=== PATIENT | female | born 1995 | race Caucasian/White ===

== ENCOUNTER 2017-08-21 03:56 | Emergency (ER) | payer OTHER ==
[~2017-08-21] VITALS: Ht 160 cm; Wt 81.6 kg
[2017-08-21 04:00] VITALS: BP 128/87
--- NOTE | 2017-08-21 04:37 | PHYS DOC ---
Past History Past Medical History: Anxiety Past Surgical History: , Other Alcohol Use: Occasionally Drug Use: None Adult General Chief Complaint Chief Complaint: DENTAL PROBLEM HPI HPI Patient is a 22-year-old female who presents ambulatory to the ED with the complaint of dental pain. Patient had all 4 wisdom teeth extracted 5 days ago. She states she was doing well for a few days but woke up about 3 this morning with more severe pain in all 4 locations. Patient is a smoker and she states that she did smoke a couple of cigarettes on the first and second day and has smoked more since then. She has been taking the prescribed antibiotics as directed. When she woke up this morning she took Tylenol and ibuprofen for the pain. It has not helped that much yet. She does not have a follow-up with her oral surgeon. Patient is in good general health. Review of Systems Review of Systems Constitutional: Denies fever or chills [] All other systems were reviewed and found to be within normal limits, except as documented in this note. Allergies Allergies Allergies Coded Allergies Type Severity Reaction Last Updated Verified No Known Drug Allergies 08/21/17 No Physical Exam Physical Exam Constitutional: Well developed, well nourished, no acute distress, non-toxic appearance. Patient is in no acute distress. Talking without difficulty. Handling her own secretions. HENT: Normocephalic, atraumatic, bilateral external ears normal, oropharynx moist, no oral exudates, nose normal. Sites of tooth extraction appear normal. There is no evidence of infection, no drainage, no redness, no swelling. Patient is able to open her mouth for examination. Eyes: conjunctiva normal, no discharge. [] Neck: Normal range of motion, no stridor. [] Skin: Warm, dry, no erythema, no rash. [] Extremities: No tenderness, no cyanosis, no clubbing, ROM intact, no edema. [] Neurologic: Alert and oriented X 3, normal motor function, no focal deficits noted. [] Current Patient Data Vital Signs Vital Signs Date Time Temp Pulse Resp B/P (MAP) Pulse Ox O2 Delivery O2 Flow Rate FiO2 08/21/17 04:00 97.9 87 18 98 Room Air EKG EKG [] Radiology/Procedures Radiology/Procedures [] Course & Med Decision Making Course & Med Decision Making Pertinent Labs and Imaging studies reviewed. (See chart for details) 22-year-old female presents 5 days after third molar extraction 4, with increased pain. Exam is unremarkable. She has been smoking. I encouraged her to not smoke. I advised her to follow up with her surgeon. See instructions for plan. [] Dragon Disclaimer Dragon Disclaimer This electronic medical record was generated, in whole or in part, using a voice recognition dictation system. Departure Departure: Impression: Primary Impression: Pain, dental Disposition: HOME, SELF-CARE Condition: STABLE Referrals: PCP,UNKNOWN (PCP) Additional Instructions: Continue to take antibiotics as prescribed. Use ice or heat, whichever feels better. When office hours open, call the office to see if they have any suggestions to help with your pain or if they can get you in for a recheck. MAURO PUENTES MD Aug 21, 2017 04:37
== END 2017-08-21 04:52 | disposition home or self-care (01) ==
LOC: ER 03:56
DX: K08.89 Other specified disorders of teeth and supporting structures (principal); F41.9 Anxiety disorder, unspecified; F17.200 Nicotine dependence, unspecified, uncomplicated; Z98.818 Other dental procedure status
CPT/HCPCS: 99281

== ENCOUNTER 2017-10-04 06:41 | Emergency (ER) | payer OTHER ==
[2017-10-04] MEDS ORDERED: IV NORMAL SALINE 1,000ML 1,000 ML IV SCH (07:12)
[2017-10-04] MEDS ORDERED: ONDANSETRON PF 4 MG/2 ML VIAL. IV ONE (07:30)
[2017-10-04 07:59] LABS: BASO # 0.1 x10^3/uL (0.0-0.2); BASO % 0 % (0-3); EOS # 0.1 x10^3/uL (0.0-0.7); EOS % 1 % (0-3); HEMATOCRIT 50.6 % (36.0-47.0); HEMOGLOBIN 17.6 g/dL (12.0-15.5); LYMPH # 0.8 x10^3/uL (1.0-4.8); LYMPH % 5 % (24-48); MEAN CORPUSCULAR HEMOGLOBIN 30 pg (25-35); MEAN CORPUSCULAR HGB CONC 35 g/dL (31-37); MEAN CORPUSCULAR VOLUME 87 fL (79-100); MONO # 0.6 x10^3/uL (0.0-1.1); MONO % 4 % (0-9); NEUT % 90 % (31-73); PLATELET COUNT 303 x10^3/uL (140-400); RED BLOOD COUNT 5.82 x10^6/uL (3.50-5.40); RED CELL DISTRIBUTION WIDTH 13.1 % (11.5-14.5); WHITE BLOOD COUNT 16.6 x10^3/uL (4.0-11.0)
[2017-10-04 08:02] LABS: ALBUMIN/GLOBULIN RATIO 0.9 (1.0-1.7); CALCIUM 9.1 mg/dL (8.5-10.1); CREATININE 1.1 mg/dL (0.6-1.0); GFR 62.1; TOTAL BILIRUBIN 0.8 mg/dL (0.2-1.0); TOTAL PROTEIN 8.4 g/dL (6.4-8.2)
[2017-10-04 08:20] LABS: BILIRUBIN,URINE NEG (NEG); CLARITY,URINE HAZY; COLOR,URINE AMBER; GLUCOSE,URINE NEG (NEG)
[2017-10-04 08:21] LABS: BACTERIA,URINE FEW /HPF (0-FEW); NITRITE,URINE NEG (NEG); RBC,URINE OCC /HPF (0-2); SQUAMOUS EPITHELIAL CELL,UR FEW /LPF; U PREG PATIENT NEGATIVE (NEG); UROBILINOGEN,URINE 0.2 mg/dL (0.2 mg/dL)
[2017-10-04 08:23] LABS: INFLUENZA A PATIENT NEGATIVE (NEGATIVE); INFLUENZA B PATIENT NEGATIVE (NEGATIVE)
--- NOTE | 2017-10-04 08:25 | PHYS DOC ---
Past History Past Medical History: Anxiety Past Surgical History: , Other Smoking: Cigarettes, Less than 1pk/day Alcohol Use: Occasionally Drug Use: None Adult General Chief Complaint Chief Complaint: NAUSEA/VOMITING/DIARRHEA HPI HPI 22-year-old male patient complaining of frequent episodes of vomiting and diarrhea since 2030 last night. Patient states she has had about 15 episodes of nonbloody vomiting and the same numbers of episodes of diarrhea. Patient complaining of intermittent episodes of sharp pain during episodes of vomiting and rated her pain 7/10. Patient complaining of decrease of urine output and denies fever and chills, sick contacts, nasal congestion and cough and shortness of breath. Patient complaining of generalized weakness and dizziness with subjective fever and chills. Review of Systems Review of Systems Constitutional: Reports fever and chills [] Eyes: Denies change in visual acuity, redness, or eye pain [] HENT: Denies nasal congestion or sore throat [] Respiratory: Denies cough or shortness of breath [] Cardiovascular: No additional information not addressed in HPI [] GI: Reports abdominal pain, nausea, vomiting, diarrhea [] : Denies dysuria or hematuria [] Musculoskeletal: Denies back pain or joint pain [] Integument: Denies rash or skin lesions [] Neurologic: Denies headache, focal weakness or sensory changes [] Endocrine: Denies polyuria or polydipsia [] All other systems were reviewed and found to be within normal limits, except as documented in this note. Current Medications Current Medications Current Medications Medications (Trade) Dose Ordered Sig/Candy Start Time Stop Time Status Last Admin Dose Admin Ondansetron HCl (Zofran) 4 mg 1X ONCE 10/04/17 07:30 10/04/17 07:31 DC 10/04/17 07:38 4 MG Sodium Chloride 1,000 ml @ 1,000 mls/hr Q1H 10/04/17 07:12 10/04/17 08:11 DC 10/04/17 07:40 1,000 MLS/HR Allergies Allergies Allergies Coded Allergies Type Severity Reaction Last Updated Verified Pork/Porcine Containing Products Allergy Unknown 10/04/17 Yes latex Allergy Unknown 10/04/17 Yes Physical Exam Physical Exam Constitutional: Well developed, well nourished, mild distress, non-toxic appearance. [] HENT: Normocephalic, atraumatic, bilateral external ears normal, oropharynx moist, no oral exudates, nose normal. [] Eyes: PERRLA, EOMI, conjunctiva normal, no discharge. [] Neck: Normal range of motion, no tenderness, supple, no stridor. [] Cardiovascular: Tachycardia, no murmur [] Lungs & Thorax: Bilateral breath sounds clear to auscultation [] Abdomen: Bowel sounds normal, soft, mild tenderness and guarding right lower quadrant, no masses, no pulsatile masses. [] Skin: Warm, dry, no erythema, no rash. [] Back: No tenderness, no CVA tenderness. [] Extremities: No tenderness, no cyanosis, no clubbing, ROM intact, no edema. [] Neurologic: Alert and oriented X 3, normal motor function, normal sensory function, no focal deficits noted. [] Psychologic: Affect normal, judgement normal, mood normal. [] Current Patient Data Lab Results Laboratory Tests Test 10/04/17 07:30 White Blood Count 16.6 x10^3/uL (4.0-11.0) H Red Blood Count 5.82 x10^6/uL (3.50-5.40) H Hemoglobin 17.6 g/dL (12.0-15.5) H Hematocrit 50.6 % (36.0-47.0) H Mean Corpuscular Volume 87 fL (79-100) Mean Corpuscular Hemoglobin 30 pg (25-35) Mean Corpuscular Hemoglobin Concent 35 g/dL (31-37) Red Cell Distribution Width 13.1 % (11.5-14.5) Platelet Count 303 x10^3/uL (140-400) Neutrophils (%) (Auto) 90 % (31-73) H Lymphocytes (%) (Auto) 5 % (24-48) L Monocytes (%) (Auto) 4 % (0-9) Eosinophils (%) (Auto) 1 % (0-3) Basophils (%) (Auto) 0 % (0-3) Neutrophils # (Auto) 15.0 x10^3uL (1.8-7.7) H Lymphocytes # (Auto) 0.8 x10^3/uL (1.0-4.8) L Monocytes # (Auto) 0.6 x10^3/uL (0.0-1.1) Eosinophils # (Auto) 0.1 x10^3/uL (0.0-0.7) Basophils # (Auto) 0.1 x10^3/uL (0.0-0.2) Platelet Estimate Pending Sodium Level 139 mmol/L (136-145) Potassium Level 4.0 mmol/L (3.5-5.1) Chloride Level 102 mmol/L (98-107) Carbon Dioxide Level 26 mmol/L (21-32) Anion Gap 11 (6-14) Blood Urea Nitrogen 27 mg/dL (7-20) H Creatinine 1.1 mg/dL (0.6-1.0) H Estimated GFR (Cockcroft-Gault) 62.1 BUN/Creatinine Ratio 25 (6-20) H Glucose Level 154 mg/dL (70-99) H Calcium Level 9.1 mg/dL (8.5-10.1) Total Bilirubin 0.8 mg/dL (0.2-1.0) Aspartate Amino Transferase (AST) 16 U/L (15-37) Alanine Aminotransferase (ALT) 30 U/L (14-59) Alkaline Phosphatase 146 U/L (46-116) H Total Protein 8.4 g/dL (6.4-8.2) H Albumin 4.0 g/dL (3.4-5.0) Albumin/Globulin Ratio 0.9 (1.0-1.7) L Lipase 54 U/L (73-393) L EKG EKG [] Radiology/Procedures Radiology/Procedures [CT abdomen and pelvis was unremarkable] Course & Med Decision Making Course & Med Decision Making Pertinent Labs and Imaging studies reviewed. (See chart for details) Evaluation of patient in ER showed 22-year-old male patient with frequent episodes of nausea and vomiting and diarrhea and abdominal pain. Patient had mild right lower quadrant tenderness and CT of abdomen and pelvis was unremarkable. Patient had dehydration and treated with 2 L of IV fluid and felt better. Plan discharge patient home with diagnosis of acute gastroenteritis and prescription of Zofran and instruction to take liquids diet today. [] Dragon Disclaimer Dragon Disclaimer This electronic medical record was generated, in whole or in part, using a voice recognition dictation system. Departure Departure: Impression: Primary Impression: Acute gastroenteritis Additional Impressions: Dehydration Abdominal pain Disposition: HOME, SELF-CARE (At 0945) Condition: IMPROVED Referrals: PCP,UNKNOWN (PCP) Patient Instructions: Dehydration, Adult, Viral Gastroenteritis Additional Instructions: Drink plenty of liquids No solid food today Follow-up with your primary care physician in 3-5 days Return to ER if not getting better Scripts Ondansetron (ZOFRAN ODT) 4 Mg Tab.rapdis 4 MG PO TID Y for NAUSEA, #12 Prov: YECENIA MAYS MD 10/04/17 Problem Qualifiers YECENIA MAYS MD Oct 04, 2017 08:25
[2017-10-04 08:28] LABS: % BANDS 11 % (0-9); % LYMPHS 8 % (24-48); % MONOS 2 % (0-10); % SEGS 79 % (35-66); PLATELET CLUMP PRESENT; PLT ESTIMATE ADEQUATE (ADEQUATE)
[2017-10-04] MEDS ORDERED: IV NORMAL SALINE 1,000ML 1,000 ML IV ONE (08:30)
[2017-10-04] MEDS ORDERED: IOHEXOL 300 MG/ML 75 ML VIAL. IV ONE (09:00)
--- NOTE | 2017-10-04 09:32 | RAD ---
CT of the abdomen and pelvis with contrast, 10/04/2017: History: Abdominal pain Multidetector CT imaging was performed following an IV bolus injection of iodinated contrast material. No oral contrast was administered for this exam. No hepatic abnormality is detected. The gallbladder is unremarkable. The pancreas shows no abnormality. The spleen is within normal limits in size. No renal or adrenal abnormality is detected. The abdominal aorta is unremarkable. No abdominal or pelvic adenopathy is seen. An IUD is present centrally in the uterus. The bowel loops are not distended. There is fluid in much of the colon. The appendix is visualized and shows no abnormality. No free air or free fluid is evident in the abdomen or pelvis. IMPRESSION: No acute abdominal or pelvic abnormality is detected. PQRS Compliance Statement: One or more of the following individualized dose reduction techniques were utilized for this examination: 1. Automated exposure control 2. Adjustment of the mA and/or kV according to patient size 3. Use of iterative reconstruction technique
[2017-10-04] MEDS ORDERED: ONDA4TAB10 PO (09:48)
[2017-10-04 10:25] VITALS: BP 113/61
== END 2017-10-04 10:30 | disposition home or self-care (01) ==
LOC: ER 06:41
DX: K52.9 Noninfective gastroenteritis and colitis, unspecified (principal); E86.0 Dehydration; R10.9 Unspecified abdominal pain; F41.9 Anxiety disorder, unspecified; F17.210 Nicotine dependence, cigarettes, uncomplicated; Z88.4 Allergy status to anesthetic agent; Z91.040 Latex allergy status
CPT/HCPCS: 36415; 74177; 80053; 81001; 81025; 83690; 85007; 85025; 87804; 96361; 96374; 99285; J2405; Q9967; J7030

== ENCOUNTER 2017-10-31 23:16 | Emergency (ER) | payer OTHER ==
[~2017-10-31] VITALS: Ht 160 cm; Wt 86.6 kg
[~2017-10-31 23:16] MED LIST: ONDA4TAB10 PO
[2017-11-01] MEDS ORDERED: KETOROLAC 60 MG/2 ML VIAL. IM ONE (00:45)
[2017-11-01] MEDS ORDERED: NAPR-683 PO (00:51)
--- NOTE | 2017-11-01 00:55 | PHYS DOC ---
Past History Past Medical History: Anxiety Past Surgical History: , Other Smoking: Cigarettes, Less than 1pk/day Alcohol Use: Occasionally Drug Use: Marijuana Adult General Chief Complaint Chief Complaint: VAGINAL PROBLEM HPI HPI 22-year-old female patient complaining of lower abdominal pain with radiation to her back for the last 4 days as a constant pain that getting worse with movement. Patient complaining of nausea without vomiting. Patient denies vaginal discharge, fever and chills, vomiting and diarrhea and urinary symptom. Patient states she has IUD and seen by her [employer] today and they could not see the string of IUD and ultrasound was ordered but because of the pain she decided to come to ER. Review of Systems Review of Systems Constitutional: Denies fever or chills [] Eyes: Denies change in visual acuity, redness, or eye pain [] HENT: Denies nasal congestion or sore throat [] Respiratory: Denies cough or shortness of breath [] Cardiovascular: No additional information not addressed in HPI [] GI: Reports abdominal pain, nausea, denies vomiting, bloody stools or diarrhea [ ] : Denies dysuria or hematuria [] Musculoskeletal: Denies joint pain, reports back [] Integument: Denies rash or skin lesions [] Neurologic: Denies headache, focal weakness or sensory changes [] Endocrine: Denies polyuria or polydipsia [] All other systems were reviewed and found to be within normal limits, except as documented in this note. Allergies Allergies Allergies Coded Allergies Type Severity Reaction Last Updated Verified Pork/Porcine Containing Products Allergy Unknown 10/04/17 Yes latex Allergy Unknown 10/04/17 Yes Physical Exam Physical Exam Constitutional: Well developed, well nourished, no acute distress, non-toxic appearance. [] HENT: Normocephalic, atraumatic, bilateral external ears normal, oropharynx moist, no oral exudates, nose normal. [] Eyes: PERRLA, EOMI, conjunctiva normal, no discharge. [] Neck: Normal range of motion, no tenderness, supple, no stridor. [] Cardiovascular:Heart rate regular rhythm, no murmur [] Lungs & Thorax: Bilateral breath sounds clear to auscultation [] Abdomen: Bowel sounds normal, soft, no tenderness, no masses, no pulsatile masses. [] Skin: Warm, dry, no erythema, no rash. [] Back: No tenderness, no CVA tenderness. [] Extremities: No tenderness, no cyanosis, no clubbing, ROM intact, no edema. [] Neurologic: Alert and oriented X 3, normal motor function, normal sensory function, no focal deficits noted. [] Psychologic: Affect normal, judgement normal, mood normal. [] EKG EKG [] Radiology/Procedures Radiology/Procedures [] Course & Med Decision Making Course & Med Decision Making Pertinent Labs reviewed. (See chart for details) Evaluation of patient in ER showed 23-year-old female patient with history of anxiety pending of abdominal and pelvic pain for 4 days. Patient seen by her OB/ PERSONAL COUNSELOR today and was told that the syncopal IUD was not seen and requested ultrasound patient could not state to ultrasound tomorrow and decided to come to ER. Patient had unremarkable physical exam except for anxiety. Patient felt better with Toradol. UA and urine was unremarkable. Patient instructed to follow with her [employer] doctor. discharge: I've spoken with the patient and/or caregivers. I've explained the patient's condition, diagnosis and treatment plan based on information available to me at this time. I've answered the patient's and/or caregivers questions and addressed any concerns. The patient and/or caregivers have a good understanding the patient's diagnosis, condition and treatment plan as can be expected at this point. Vital signs have been stabilized. The patient's condition is stable for discharge from the emergency department. The patient will pursue further outpatient evaluation with her primary care provider or other designated consulting physician as outlined in the discharge instructions. Patient and/or caregivers are agreeable to this plan of care and follow-up instructions have been explained in detail. The patient and/or caregivers have received these instructions in written format and expressed understanding of these discharge instructions. The patient and her caregivers are aware that if any significant change in condition or worsening of symptoms should prompt him to immediately return to this of the closest emergency department. If an emergent department is not readily available I would encourage him to call 911. [place] Disclaimer Dragon Disclaimer This electronic medical record was generated, in whole or in part, using a voice recognition dictation system. Departure Departure: Impression: Primary Impression: Pelvic pain Additional Impression: Anxiety Disposition: HOME, SELF-CARE (at 0050) Condition: IMPROVED Referrals: NON,STAFF (PCP) Patient Instructions: Pelvic Pain, Female Additional Instructions: Drink plenty of liquids Follow-up with your [employer] as instructed Return to ER if not getting better Scripts Naproxen (NAPROSYN) 500 Mg Tablet 1 TAB PO BID, #20 TAB 1 Refill Prov: YECENIA MAYS MD 11/01/17 Problem Qualifiers YECENIA MAYS MD Nov 01, 2017 00:55
[2017-11-01 01:00] VITALS: BP 141/81
[2017-11-01 02:37] LABS: BILIRUBIN,URINE NEG (NEG); CLARITY,URINE CLEAR; COLOR,URINE YELLOW; GLUCOSE,URINE NEG (NEG); NITRITE,URINE NEG (NEG); UROBILINOGEN,URINE 0.2 mg/dL (0.2 mg/dL)
== END 2017-11-01 01:00 | disposition home or self-care (01) ==
LOC: ER 23:16
DX: R10.2 Pelvic and perineal pain (principal); F41.9 Anxiety disorder, unspecified; F17.210 Nicotine dependence, cigarettes, uncomplicated; F12.10 Cannabis abuse, uncomplicated; Z98.890 Other specified postprocedural states; Z91.040 Latex allergy status; Z91.048 Other nonmedicinal substance allergy status
CPT/HCPCS: 81003; 81025; 96372; 99283; J1885

== ENCOUNTER → 2017-11-13 | Outpatient (CLI) | payer OTHER ==
[2017-11-01 01:00] VITALS: BP 141/81
[~2017-11-13] MED LIST changes: +NAPR-683 PO
--- NOTE | 2017-11-13 14:29 | RAD ---
DATE: 11/13/2017. EXAM: ULTRASOUND BREAST LEFT, MAMMO KEILA DIAG LT. HISTORY: Palpable focus in the left breast. History of left breast abscess superior to this site. COMPARISON: None available. This is interpreted as a baseline study. This study was interpreted with the benefit of Computerized Aided Detection (CAD). FINDINGS: On today's sonography at the site of concern at the 9:00 position 2 cm from the nipple, there is an elongated, isoechoic to slightly hyperechoic region with irregular borders that measures approximately 1.1 x 0.6 x 1.2 cm. It appears contiguous with a scarlike region that extends more superficially. No clearly liquid component or internal flow is identified. The breast parenchyma is heterogeneously dense, which could reduce sensitivity of mammography. Breast parenchyma level C.. Mammographic, the palpable region of concern is marked inferomedially at approximately the 7:00 position. Underlying this, there is an elongated bilobed density that appears to represent a combination of mass and adjacent parenchyma. Altogether it measures approximately 1.1 cm short axis and 4.5 cm longitudinally. There are no associated calcifications. There is some architectural distortion. Another density very medially just inferior to the nipple appears to be a parenchymal island on tomography. BI-RADS CATEGORY: 4 SUSPICIOUS ABNORMALITY-BIOPSY SHOULD BE CONSIDERED. RECOMMENDED FOLLOW-UP: BIO BIOPSY RECOMMENDED. A relatively hyperechoic mass with architectural distortion may represent fat necrosis in the setting of prior breast abscess, but is indeterminate. Recommend ultrasound-guided biopsy of the hyperechoic masslike region of concern at the 9:00 position with clip placement. Postclip mammography can assess its relationship to the more elongated mammographic density and guide further management. PQRS compliance statement: Patient information was entered into a reminder system with a target due date (now) for the next mammogram. Mammography is a sensitive method for finding small breast cancers, but it does not detect them all and is not a substitute for careful clinical examination. A negative mammogram does not negate a clinically suspicious finding and should not result in delay in biopsying a clinically suspicious abnormality. "Our facility is accredited by the [employer] Mammography Program."
== END | disposition home or self-care (01) ==
LOC: US 13:17
PROVIDERS: ATTEND Nurse Practitioner Family
DX: N63.20 Unspecified lump in the left breast, unspecified quadrant (principal)
CPT/HCPCS: 76641; 77065; G0279; 77061

== ENCOUNTER 2018-01-04 20:03 | Emergency (ER) | payer OTHER ==
[~2018-01-04] VITALS: Ht 160 cm; Wt 86.4 kg
[2018-01-04 21:20] LABS: BILIRUBIN,URINE NEG (NEG); CLARITY,URINE CLOUDY; COLOR,URINE AMBER; GLUCOSE,URINE NEG (NEG); NITRITE,URINE POS (NEG); UROBILINOGEN,URINE 1 mg/dL (0.2 mg/dL)
[2018-01-04 21:29] LABS: BACTERIA,URINE FEW /HPF (0-FEW); RBC,URINE TNTC /HPF (0-2)
[2018-01-04 21:47] VITALS: BP 134/85
[2018-01-04] MEDS ORDERED: CEPH-264 PO (21:49)
[2018-01-04] MEDS ORDERED: PHEN100T82 PO (21:49)
--- NOTE | 2018-01-04 21:49 | PHYS DOC ---
Past History Past Medical History: Anxiety Past Surgical History: , Other Smoking: Cigarettes, Less than 1pk/day Alcohol Use: Occasionally Drug Use: Marijuana Adult General Chief Complaint Chief Complaint: BLOOD IN URINE HPI HPI 22-year-old female complaining of dysuria or frequency urgency and blood in her urine. Patient states she is not having vaginal bleeding or discharge. She has no back pain. No nausea vomiting fevers chills or sweats. Patient has no colicky pain in the discomfort is confined to her suprapubic distribution Review of Systems Review of Systems Constitutional: Denies fever or chills [] Eyes: Denies change in visual acuity, redness, or eye pain [] HENT: Denies nasal congestion or sore throat [] Respiratory: Denies cough or shortness of breath [] Cardiovascular: No additional information not addressed in HPI [] GI: Denies abdominal pain, nausea, vomiting, bloody stools or diarrhea [] : Denies dysuria or hematuria [] Musculoskeletal: Denies back pain or joint pain [] Integument: Denies rash or skin lesions [] Neurologic: Denies headache, focal weakness or sensory changes [] Endocrine: Denies polyuria or polydipsia [] All other systems were reviewed and found to be within normal limits, except as documented in this note. Current Medications Current Medications Current Medications Medications (Trade) Dose Ordered Sig/Candy Start Time Stop Time Status Last Admin Dose Admin Cephalexin HCl (Keflex) 500 mg 1X ONCE 01/04/18 21:45 01/04/18 21:46 UNV Phenazopyridine HCl (Pyridium) 200 mg 1X ONCE 01/04/18 21:45 01/04/18 21:46 UNV Allergies Allergies Allergies Coded Allergies Type Severity Reaction Last Updated Verified Pork/Porcine Containing Products Allergy Unknown 10/04/17 Yes latex Allergy Unknown 10/04/17 Yes Physical Exam Physical Exam Well-appearing female no acute distress completely benign exam except mild suprapubic tenderness no guarding or rebound no mass or megaly normal bowel sounds nondistended abdomen no CVA tenderness Constitutional: Well developed, well nourished, no acute distress, non-toxic appearance. [] HENT: Normocephalic, atraumatic, bilateral external ears normal, oropharynx moist, no oral exudates, nose normal. [] Eyes: PERRLA, EOMI, conjunctiva normal, no discharge. [] Neck: Normal range of motion, no tenderness, supple, no stridor. [] Cardiovascular:Heart rate regular rhythm, no murmur [] Lungs & Thorax: Bilateral breath sounds clear to auscultation [] Abdomen: Bowel sounds normal, soft, no tenderness, no masses, no pulsatile masses. [] Skin: Warm, dry, no erythema, no rash. [] Back: No tenderness, no CVA tenderness. [] Extremities: No tenderness, no cyanosis, no clubbing, ROM intact, no edema. [] Neurologic: Alert and oriented X 3, normal motor function, normal sensory function, no focal deficits noted. [] Psychologic: Affect normal, judgement normal, mood normal. [] Current Patient Data Vital Signs Vital Signs Date Time Temp Pulse Resp B/P (MAP) Pulse Ox O2 Delivery O2 Flow Rate FiO2 01/04/18 20:30 97.8 120 18 100 Room Air Lab Results Laboratory Tests Test 01/04/18 19:41 01/04/18 20:20 POC Urine HCG, Qualitative hcg negative (Negative) Urine Collection Type Unknown Urine Color Dorcas Urine Clarity Cloudy Urine pH 6.0 Urine Specific Mclean 1.025 Urine Protein >100 mg/dl (NEG-TRACE) Urine Glucose (UA) Neg mg/dL (NEG) Urine Ketones (Stick) 15 mg/dL (NEG) Urine Blood Large (NEG) Urine Nitrite Pos (NEG) Urine Bilirubin Neg (NEG) Urine Urobilinogen Dipstick 1 mg/dL (0.2 mg/dL) Urine Leukocyte Esterase Large (NEG) Urine RBC Tntc /HPF (0-2) Urine WBC 1-4 /HPF (0-4) Urine Squamous Epithelial Cells None /LPF Urine Bacteria Few /HPF (0-FEW) EKG EKG [] Radiology/Procedures Radiology/Procedures [] Course & Med Decision Making Course & Med Decision Making Pertinent Labs and Imaging studies reviewed. (See chart for details) Signs and symptoms consistent with UTI confirmed by urinalysis. Keflex and Pyridium given in ED and prescription dispensed dispensed. Patient aware to follow-up with primary care physician and return immediately for new severe worsening symptoms [] Dragon Disclaimer Dragon Disclaimer This electronic medical record was generated, in whole or in part, using a voice recognition dictation system. Departure Departure: Impression: Primary Impression: UTI (urinary tract infection) Additional Impression: Microscopic hematuria Disposition: 01 HOME, SELF-CARE Condition: IMPROVED Referrals: PCP,UNKNOWN (PCP) Patient Instructions: Urinary Tract Infection Additional Instructions: It appears the have urinary tract infection. Finish Keflex as prescribed. Take Pyridium as prescribed for burning and discomfort with urination. Rest and drink plenty of fluids. Follow-up with your doctor for reevaluation and recheck of your infection and your microscopic hematuria. Return immediately for new severe worsening symptoms Scripts Phenazopyridine Hcl (PYRIDIUM) 100 Mg Tablet 100 MG PO TID, #6 TAB Prov: JENNY CORTES MD 01/04/18 Cephalexin (KEFLEX) 500 Mg Capsule 500 MG PO QID for 10 Days, #40 CAP Prov: JENNY CORTES MD 01/04/18 Problem Qualifiers JENNY CORTES MD Jan 04, 2018 21:49
[2018-01-04] MEDS ORDERED: PHENAZOPYRIDINE 200 MG TABLET. PO ONE (22:00)
[2018-01-04] MEDS ORDERED: CEPHALEXIN 250 MG CAPSULE PO ONE (22:00)
== END 2018-01-04 22:03 | disposition home or self-care (01) ==
LOC: ER 20:03
DX: N39.0 Urinary tract infection, site not specified (principal); R31.29 Other microscopic hematuria; F41.9 Anxiety disorder, unspecified; F17.210 Nicotine dependence, cigarettes, uncomplicated; F12.10 Cannabis abuse, uncomplicated; Z91.040 Latex allergy status; Z91.048 Other nonmedicinal substance allergy status
CPT/HCPCS: 81001; 81025; 99283

== ENCOUNTER 2018-03-19 00:18 | Emergency (ER) | payer OTHER ==
[~2018-03-19] VITALS: Ht 160 cm; Wt 88.1 kg
[~2018-03-19 00:18] MED LIST changes: +CEPH-264 PO; +PHEN100T82 PO
--- NOTE | 2018-03-19 00:22 | ED.ADGEN ---
Past History Past Medical History: Anxiety Past Surgical History: , Other Smoking: Cigarettes, Less than 1pk/day Alcohol Use: Occasionally Drug Use: Marijuana Adult General HPI HPI Patient is a 22 year old female who presents with left breast pain. Patient states she was evaluated a month ago and noted to have a mass in the left breast by her septic tank service technician. She was referred for mammogram. She was then recommended to have biopsy done but did not proceed to this procedure for fear of receiving a poor diagnosis. She presents to the ER [facility] complaining of acute pain in the area where the mass was noted. She isn't having pain over the last 2-3 days. The pain has been causing her a lot of anxiety and some intermittent nausea. She has had no vomiting. No fever. No nipple discharge. Review of Systems Review of Systems Constitutional: Denies fever or chills HENT: Denies nasal congestion Respiratory: Denies cough Cardiovascular: No additional information GI: Denies abdominal pain Musculoskeletal: Denies back pain Integument: Denies rash or skin lesions Neurologic: Denies headache All other systems were reviewed and found to be within normal limits, except as documented in this note. Current Medications Current Medications Current Medications Medications (Trade) Dose Ordered Sig/Candy Start Time Stop Time Status Last Admin Dose Admin Acetaminophen/ Hydrocodone Bitart (Lortab 7.5/325) 1 tab 1X ONCE 03/19/18 01:00 03/19/18 01:01 UNV Ibuprofen (Motrin) 800 mg 1X ONCE 03/19/18 01:00 03/19/18 01:01 UNV Ondansetron HCl (Zofran Odt) 4 mg 1X ONCE 03/19/18 01:00 03/19/18 01:01 UNV Allergies Allergies Allergies Coded Allergies Type Severity Reaction Last Updated Verified Pork/Porcine Containing Products Allergy Unknown 10/04/17 Yes latex Allergy Unknown 10/04/17 Yes Physical Exam Physical Exam Constitutional: Well developed, well nourished HENT: Normocephalic, atraumatic, bilateral external ears normal Neck: Normal range of motion Abdomen: Bowel sounds normal Skin: Warm, dry, no erythema, there is an area over the chin of erythema and some blistering. There is an additional area that appears similar over the right ear and over the back of the left shoulder. The patient states these developed after she had a sunburn several days earlier. She had some blisters that she picked and the wounds failed to heal. Rather have gotten worse. There is some local erythema and warmth to touch in the areas. Neurologic: Alert and oriented X 3 Psychologic: Affect normal Examination of the left breast reveals no dimpling. There is no nipple discharge. The patient does have a piercing through the nipple. Over the external aspect of the left breast at the 9 o'clock position in relation to the nipple there is a large palpable mass that is painful. The mass is not seem fluctuant. It is movable in the breast tissue. I did not appreciate additional masses on the rest of the breast exam. Current Patient Data Vital Signs Vital Signs Date Time Temp Pulse Resp B/P (MAP) Pulse Ox O2 Delivery O2 Flow Rate FiO2 03/19/18 00:23 98.6 102 18 97 Room Air EKG EKG [] Radiology/Procedures Radiology/Procedures [] Course & Med Decision Making Course & Med Decision Making Pertinent Labs and Imaging studies reviewed. (See chart for details) Patient is seen and examined immediately on arrival. She presents with concerns of pain in the area of a breast mass which she was first diagnosed with 8 months earlier. Her examination is documented above. The exam was accompanied by a female registered nurse. Bedside ultrasound was completed to evaluate and the were multiple cystic structures present in the area of concern in the left breast. Formal ultrasound was not ordered this evening because there is no indication for an emergency ultrasound in this setting and in the absence of concern for acute abscess. There are no skin changes or local fever or erythema concerning for cellulitis or abscess. The area was mildly tender during the exam. The patient is again strongly recommended to follow-up with her primary care physician which she states she will do tomorrow. She does need to proceed to formal ultrasound and biopsy irregardless of cystic structures that were visualized this evening. This is explained to the patient and she does seem to understand. She states she'll contact her primary care doctor tomorrow. Regarding the skin lesions, the patient is placed on clindamycin for both staph and strep coverage empirically. Opiate precautions were discussed. Patient is agreeable to the plan of care. She is accompanied by her sister this evening who will be driving her home. Final Impression Final Impression Mass in Left Breast Fibrocystic breast tissue Draglew Disclaimer Dragon Disclaimer This electronic medical record was generated, in whole or in part, using a voice recognition dictation system. MIGUELITO GILLIS DO Mar 19, 2018 00:22
[2018-03-19 00:23] VITALS: BP 122/88
[2018-03-19] MEDS ORDERED: ONDA8TAB12 PO (00:56)
[2018-03-19] MEDS ORDERED: HYDR-971 PO (00:56)
[2018-03-19] MEDS ORDERED: IBUP800T19 PO (00:56)
[2018-03-19] MEDS ORDERED: CLIN300C8 PO (01:03)
[2018-03-19] MEDS ORDERED: ONDANSETRON ODT 4 MG TAB.RAPDIS PO ONE (01:15)
[2018-03-19] MEDS ORDERED: HYDROcodone/APAP 7.5/325MG 1 TAB TABLET PO ONE (01:15)
[2018-03-19] MEDS ORDERED: IBUPROFEN 800 MG TABLET. PO ONE (01:15)
== END 2018-03-19 01:25 | disposition home or self-care (01) ==
LOC: ER 00:18
DX: N63.0 Unspecified lump in unspecified breast (principal); N60.12 Diffuse cystic mastopathy of left breast; F41.9 Anxiety disorder, unspecified; F17.210 Nicotine dependence, cigarettes, uncomplicated; Z91.040 Latex allergy status; Z91.048 Other nonmedicinal substance allergy status
CPT/HCPCS: 99284; Q0162

== ENCOUNTER 2018-09-14 22:28 | Emergency (ER) | payer OTHER ==
[~2018-09-14] VITALS: Ht 160 cm; Wt 78.0 kg
[~2018-09-14 22:28] MED LIST changes: +CLIN300C8 PO; +HYDR-3165 PO; +IBUP800T19 PO; +ONDA8TAB12 PO
--- NOTE | 2018-09-14 22:32 | ED.ADGEN ---
Past History Past Medical History: No Pertinent History Past Surgical History: No Surgical History Smoking: Cigarettes, Less than 1pk/day Alcohol Use: Occasionally Drug Use: None Adult General Chief Complaint Chief Complaint "..I fell...yesterday.... Ice Skating... but today... I got a massage.. and the masseuse punched my hand... and now my wrist and hand hurt..Rt.. " HPI HPI Patient is a 23 year old female who presents with above hx and complaints injury to Rt. hand in fall yesterday. However while getting a massage today, had re-injury by a massage technique. Distal neurovascular intact. Patient localizes pain to the fifth finger and middle phalange area of right hand. Patient is right-hand dominant. Capillary refill is equal to other fingers. No other injuries reported. Patient reports increased pain with movement of fifth finger. No upper arm tenderness. Wrist squeeze is nontender. Review of Systems Review of Systems Constitutional: Denies fever or chills [] Eyes: Denies change in visual acuity, redness, or eye pain [] HENT: Denies nasal congestion or sore throat [] Respiratory: Denies cough or shortness of breath [] Cardiovascular: No additional information not addressed in HPI [] GI: Denies abdominal pain, nausea, vomiting, bloody stools or diarrhea [] : Denies dysuria or hematuria [] Musculoskeletal: Denies back pain or joint pain []complains of right hand injury Integument: Denies rash or skin lesions [] Neurologic: Denies headache, focal weakness or sensory changes [] Endocrine: Denies polyuria or polydipsia [] All other systems were reviewed and found to be within normal limits, except as documented in this note. Family History Family History Noncontributory Current Medications Current Medications Current Medications Medications (Trade) Dose Ordered Sig/Candy Start Time Stop Time Status Last Admin Dose Admin Hydrocodone Bitartrate/ Ibuprofen (Vicoprofen 7.5-200) 1 tab STK-MED ONCE 09/15/18 00:02 09/15/18 00:11 DC Allergies Allergies Allergies Coded Allergies Type Severity Reaction Last Updated Verified Pork/Porcine Containing Products Allergy Unknown 10/04/17 Yes latex Allergy Unknown 10/04/17 Yes Physical Exam Physical Exam Constitutional: Well developed, well nourished, moderately acute distress, non- toxic appearance. [] HENT: Normocephalic, atraumatic, bilateral external ears normal, oropharynx moist, no oral exudates, nose normal. [] Eyes: PERRLA, EOMI, conjunctiva normal, no discharge. [] Neck: Normal range of motion, no tenderness, supple, no stridor. [] Cardiovascular:Heart rate regular rhythm, no murmur [] Lungs & Thorax: Bilateral breath sounds equal apexes few scattered wheezes auscultation [] Abdomen: Bowel sounds normal, soft, no tenderness, no masses, no pulsatile masses. [] Skin: Warm, dry, no erythema, no rash. [] Back: No tenderness, no CVA tenderness. [] Extremities: No tenderness, no cyanosis, no clubbing, ROM intact, no edema. [] Except right hand complaints as per history of present illness Neurologic: Alert and oriented X 3, normal motor function, normal sensory function, no focal deficits noted. [] Psychologic: Affect anxious, judgement normal, mood normal. [] Current Patient Data Vital Signs Vital Signs Date Time Temp Pulse Resp B/P (MAP) Pulse Ox O2 Delivery O2 Flow Rate FiO2 09/14/18 22:38 98.5 114 16 98 Room Air EKG EKG [] Radiology/Procedures Radiology/Procedures My interpretation of x-ray of right hand shows no obvious fracture or dislocation. See formal report when available.[] Course & Med Decision Making Course & Med Decision Making Pertinent Labs and Imaging studies reviewed. (See chart for details) Rest. Elevation. Ice packs as needed. Use adan splint to fingers 5 and 4. Take Tylenol and ibuprofen for discomfort. For marked discomfort may take Vicoprofen. Follow-up primary care. Consider re-x-ray no improvement in 2 weeks. [] Final Impression Final Impression 1. Rt. Hand and Wrist Sprain[] Dragon Disclaimer Dragon Disclaimer This electronic medical record was generated, in whole or in part, using a voice recognition dictation system. JORDY MCQUEEN MD Sep 14, 2018 22:32
[2018-09-14 22:38] VITALS: BP 111/79
[2018-09-14] MEDS ORDERED: HYDR-1179 PO (23:45)
--- NOTE | 2018-09-14 23:58 | RAD ---
Right HAND, VIEWS 3 Indication: Fell yesterday. Pain in right 3rd,4th and 5th digits. Hx of dislocation Findings: There is no acute fracture or dislocation. Bony articulations are normal. There is no bony erosion. Mineralization is normal. There is no radiographically apparent soft tissue swelling or radiopaque foreign body. IMPRESSION: No acute fracture. Electronically signed by: Cesar Iqbal MD (09/14/2018 11:55 PM) [facility]
[2018-09-15] MEDS ORDERED: HYDROcodon/IBUPROFEN 7.5/200MG 1 TAB TABLET PO ONE
[2018-09-15] MEDS ORDERED: HYDROcodon/IBUPROFEN 7.5/200MG 1 TAB TABLET ONE (00:02)
== END 2018-09-15 00:10 | disposition home or self-care (01) ==
LOC: ER 22:28
DX: S63.501A Unspecified sprain of right wrist, initial encounter (principal); F17.210 Nicotine dependence, cigarettes, uncomplicated; Z91.040 Latex allergy status; Z88.8 Allergy status to other drugs, medicaments and biological substances; W18.30XA Fall on same level, unspecified, initial encounter; Y93.21 Activity, ice skating; Y92.89 Other specified places as the place of occurrence of the external cause; Y99.8 Other external cause status
CPT/HCPCS: 73130; 99283; 99284

== ENCOUNTER 2018-11-27 21:06 | Emergency (ER) | payer OTHER ==
[~2018-11-27] VITALS: Ht 160 cm; Wt 70.8 kg
[~2018-11-27 21:06] MED LIST changes: +HYDR-1179 PO
[2018-11-27] MEDS ORDERED: IV NORMAL SALINE 1,000ML 1,000 ML IV ONE ×2 (21:15→22:15)
[2018-11-27] MEDS ORDERED: KETOROLAC 30 MG/ML VIAL. IV ONE (21:30)
[2018-11-27] MEDS ORDERED: FAMOTIDINE 20 MG/2 ML VIAL IVP ONE (21:30)
[2018-11-27] MEDS ORDERED: ONDANSETRON PF 4 MG/2 ML VIAL. IV ONE ×2 (21:30→22:15)
--- NOTE | 2018-11-27 21:40 | PHYS DOC ---
Past History Past Medical History: No Pertinent History Past Surgical History: , Other Smoking: Cigarettes, Less than 1pk/day Alcohol Use: Occasionally Drug Use: None Adult General Chief Complaint Chief Complaint: ABDOMINAL PAIN HPI HPI Patient is a 23 year old female who presents with one week of upper respiratory symptoms, nausea, and vomiting. Patient says she has not been able to keep food or drink down. She has tried taking antacid and ibuprofen. She denies chest pain , shortness of breath, diarrhea, dysuria, or hematuria. No recent travel or exposure to known sick contacts. Review of Systems Review of Systems Constitutional: Denies fever or chills [] Eyes: Denies change in visual acuity, redness, or eye pain [] HENT: Denies nasal congestion or sore throat [] Respiratory: Reports cough; denies shortness of breath [] Cardiovascular: Denies chest pain GI: Reports nausea and vomiting; denies abdominal pain or diarrhea [] : Denies dysuria or hematuria [] Musculoskeletal: Denies back pain or joint pain [] Integument: Denies rash or skin lesions [] Neurologic: Denies headache, focal weakness or sensory changes [] Complete systems were reviewed and found to be within normal limits, except as documented in this note. Current Medications Current Medications Current Medications Medications (Trade) Dose Ordered Sig/Candy Start Time Stop Time Status Last Admin Dose Admin Famotidine (Pepcid Vial) 20 mg 1X ONCE 11/27/18 21:30 11/27/18 21:31 DC Ketorolac Tromethamine (Toradol 30mg Vial) 15 mg 1X ONCE 11/27/18 21:30 11/27/18 21:31 DC Ondansetron HCl (Zofran) 4 mg 1X ONCE 11/27/18 21:30 11/27/18 21:31 DC Sodium Chloride 1,000 ml @ 1,000 mls/hr 1X ONCE 11/27/18 21:15 11/27/18 22:14 Allergies Allergies Allergies Coded Allergies Type Severity Reaction Last Updated Verified Pork/Porcine Containing Products Allergy Unknown 10/04/17 Yes latex Allergy Unknown 10/04/17 Yes Physical Exam Physical Exam Constitutional: Well developed, well nourished, no acute distress, non-toxic appearance. [] HENT: Normocephalic, atraumatic, oropharynx moist Eyes: Conjunctiva normal, no discharge. [] Neck: Normal range of motion, no tenderness, supple, no stridor. [] Cardiovascular: Heart rate regular rhythm, no murmur [] Lungs & Thorax: Bilateral breath sounds clear to auscultation [] Abdomen: Soft, mild epigastric tenderness, no rebound/guarding/distention Skin: Warm, dry, no erythema, no rash. [] Back: No tenderness, no CVA tenderness. [] Extremities: No tenderness, ROM intact, no edema. [] Neurologic: Alert and oriented X 3, normal motor function, normal sensory function, no focal deficits noted. [] Psychologic: Affect normal, judgement normal, mood normal. [] Current Patient Data Vital Signs Vital Signs Date Time Temp Pulse Resp B/P (MAP) Pulse Ox O2 Delivery O2 Flow Rate FiO2 11/27/18 21:10 98.1 91 18 95 Room Air EKG EKG [] Radiology/Procedures Radiology/Procedures [] Course & Med Decision Making Course & Med Decision Making Pertinent Lab studies reviewed. (See chart for details) Patient presents with report of cough and nausea and vomiting. Some epigastric tenderness on palpation. Abdomen non-peritoneal. IVF hydration given. Labs obtained and posted to chart. Hemoglobin concentrated as in dehydration. Second IVF bolus provided. UA with signs of infection. Empiric antibiotics given. Potassium replaced. Pain/nausea addressed. Patient with interval improvement of symptoms. Patient stable for discharge home with outpatient follow-up with PCP. Discussed findings and plan with patient and family, who acknowledge understanding and agreement. Dragon Disclaimer Dragon Disclaimer This electronic medical record was generated, in whole or in part, using a voice recognition dictation system. Departure Departure: Impression: Primary Impression: Abdominal pain Additional Impression: Nausea & vomiting Disposition: 01 HOME, SELF-CARE Condition: STABLE Referrals: PCP,HUMA (PCP) JÚNIOR PADILLA MD Patient Instructions: Abdominal Pain (Nonspecific), Hypokalemia-Brief, Nausea and Vomiting, Jkfa-[id number]-Brac, Potassium Content of Foods, Urinary Tract Infection , Kxpu-br-Tnpi Scripts Cephalexin (KEFLEX) 500 Mg Capsule 1 CAP PO TID for UTI for 7 Days, #21 CAP Prov: JENNY NEUMANN DO 11/28/18 Hyoscyamine Sulfate (LEVSIN-SL) 0.125 Mg Tab.subl 1-2 TAB SL PRN Q4HRS for Abdominal pain, #20 TAB Prov: JENNY NEUMANN DO 11/28/18 Promethazine HCl (Phenergan) 25 Mg Supp.rect 25 MG RC TID PRN PRN for NAUSEA, #14 SUPP.RECT Prov: JENNY NEUMANN DO 11/28/18 Ondansetron (ONDANSETRON ODT) 4 Mg Tab.rapdis 1 TAB PO PRN Q6-8HRS for NAUSEA, #16 TAB Prov: JENNY NEUMANN DO 11/28/18 Famotidine (PEPCID) 20 Mg Tablet 1 TAB PO BID for gastritis, #20 TAB Prov: JENNY NEUMANN DO 11/28/18 Problem Qualifiers Primary Impression: Abdominal pain Abdominal location: epigastric Qualified Codes: R10.13 - Epigastric pain Additional Impression: Nausea & vomiting Vomiting type: unspecified Vomiting Intractability: intractable Qualified Codes: R11.2 - Nausea with vomiting, unspecified JENNY NEUMANN DO Nov 27, 2018 21:40
[2018-11-27 21:58] LABS: BASO # 0.1 x10^3/uL (0.0-0.2); BASO % 1 % (0-3); EOS # 0.1 x10^3/uL (0.0-0.7); EOS % 1 % (0-3); HEMATOCRIT 47.1 % (36.0-47.0); HEMOGLOBIN 16.2 g/dL (12.0-15.5); LYMPH # 4.3 x10^3/uL (1.0-4.8); LYMPH % 38 % (24-48); MEAN CORPUSCULAR HEMOGLOBIN 30 pg (25-35); MEAN CORPUSCULAR HGB CONC 34 g/dL (31-37); MEAN CORPUSCULAR VOLUME 86 fL (79-100); MONO # 0.6 x10^3/uL (0.0-1.1); MONO % 5 % (0-9); NEUT # 6.2 x10^3uL (1.8-7.7); NEUT % 55 % (31-73); PLATELET COUNT 321 x10^3/uL (140-400); RED BLOOD COUNT 5.48 x10^6/uL (3.50-5.40); RED CELL DISTRIBUTION WIDTH 12.7 % (11.5-14.5); WHITE BLOOD COUNT 11.3 x10^3/uL (4.0-11.0)
[2018-11-27 22:02] LABS: BARBITURATES NEG (NEG); BENZODIAZEPINES NEG (NEG); CANNABINOIDS POS (NEG); COCAINE NEG (NEG); METHADONE NEG (NEG); OPIATES NEG (NEG); PHENCYCLIDINE NEG (NEG)
[2018-11-27 22:04] LABS: BILIRUBIN,URINE SMALL (NEG); CLARITY,URINE HAZY; COLOR,URINE AMBER; GLUCOSE,URINE NEG (NEG); NITRITE,URINE POS (NEG); RBC,URINE OCC /HPF (0-2); UROBILINOGEN,URINE 0.2 mg/dL (0.2 mg/dL); WBC,URINE >40 /HPF (0-4)
[2018-11-27 22:05] LABS: BACTERIA,URINE MANY /HPF (0-FEW); SQUAMOUS EPITHELIAL CELL,UR FEW /LPF
[2018-11-27 22:06] LABS: AMPHETAMINE/METHAMPHETAMINE NEG (NEG)
[2018-11-27 22:07] LABS: ALBUMIN 4.1 g/dL (3.4-5.0); CALCIUM 9.3 mg/dL (8.5-10.1); CREATININE 0.8 mg/dL (0.6-1.0); GFR 88.9; TOTAL BILIRUBIN 0.7 mg/dL (0.2-1.0); TOTAL PROTEIN 8.2 g/dL (6.4-8.2)
[2018-11-27] MEDS ORDERED: IV NORMAL SALINE 50ML 50 ML ONE (22:30)
[2018-11-27] MEDS ORDERED: cefTRIAXone SODIUM 1 GM VIAL ONE (22:30)
[2018-11-27] MEDS ORDERED: BENZONATATE 100 MG CAPSULE. PO ONE ×2 (23:00→23:02)
[2018-11-28] MEDS ORDERED: POTASSIUM CHLORIDE 20 MEQ TABLET.ER. PO ONE
[2018-11-28] MEDS ORDERED: PROCHLORPERAZINE 10 MG/2 ML VIAL. IV ONE
[2018-11-28] MEDS ORDERED: diphenhydrAMINE 50 MG/ML VIAL IVP ONE
[2018-11-28] MEDS ORDERED: KETOROLAC 15 MG/ML VIAL. IV ONE (00:30)
[2018-11-28] MEDS ORDERED: HYOS0.1265 SL (00:52)
[2018-11-28] MEDS ORDERED: FAMO-63 PO (00:52)
[2018-11-28] MEDS ORDERED: ONDA4TAB12 PO (00:52)
[2018-11-28] MEDS ORDERED: PROM25SU32 RC (00:52)
[2018-11-28] MEDS ORDERED: CEPH-264 PO (00:53)
[2018-11-28 00:56] VITALS: BP 125/69
[2018-11-29] MEDS ORDERED: RANI300T3 PO (16:04)
== END 2018-11-28 01:00 | disposition home or self-care (01) ==
LOC: ER 21:06
DX: R11.2 Nausea with vomiting, unspecified (principal); R10.13 Epigastric pain; F17.210 Nicotine dependence, cigarettes, uncomplicated; Z98.890 Other specified postprocedural states; Z91.040 Latex allergy status; Z88.8 Allergy status to other drugs, medicaments and biological substances
CPT/HCPCS: 36415; 80053; 80307; 81001; 81025; 83690; 85025; 87086; 96361; 96365; 96374; 96375; 99284; J0696; J0780; J1200; J1885; J2405; J3490; J7030

== ENCOUNTER 2018-11-29 13:27 | Emergency (ER) | payer OTHER ==
[~2018-11-29] VITALS: Ht 160 cm; Wt 72.6 kg
[~2018-11-29 13:27] MED LIST changes: +FAMO-63 PO; +HYOS0.1265 SL; +ONDA4TAB12 PO; +PROM25SU32 RC
[2018-11-29] MEDS ORDERED: ONDANSETRON PF 4 MG/2 ML VIAL. ONE (13:58)
[2018-11-29] MEDS ORDERED: FAMOTIDINE 20 MG/2 ML VIAL ONE (13:58)
[2018-11-29] MEDS ORDERED: IV NORMAL SALINE 1,000ML 1,000 ML IV ONE (14:00)
--- NOTE | 2018-11-29 14:00 | PHYS DOC ---
Past History Past Medical History: No Pertinent History Past Surgical History: , Other Smoking: Cigarettes, Less than 1pk/day Alcohol Use: Occasionally Drug Use: None Adult General Chief Complaint Chief Complaint: ABDOMINAL PAIN HPI HPI Patient is a 23-year-old female who presents today with severe intractable right upper quadrant abdominal pain. She states she was recently seen and diagnosed with a urinary tract infection. However, her upper abdominal discomfort has been unrelenting. She states she is unable to hold anything down. She states there is pain at rest however if she drinks anything or eats anything the pain intensifies. She does not describe any radiation to the pain. She denies any melena or hematemesis. She has not previously had any gallbladder issues. She has not had any fever chills or sweats. Review of Systems Review of Systems Constitutional: Denies fever or chills [] Eyes: Denies change in visual acuity, redness, or eye pain [] HENT: Denies nasal congestion or sore throat [] Respiratory: Denies cough or shortness of breath [] Cardiovascular: No additional information not addressed in HPI [] GI: Per history of present illness[] : Denies dysuria or hematuria [] Musculoskeletal: Denies back pain or joint pain [] Integument: Denies rash or skin lesions [] Neurologic: Denies headache, focal weakness or sensory changes [] Endocrine: Denies polyuria or polydipsia [] All other systems were reviewed and found to be within normal limits, except as documented in this note. Current Medications Current Medications Current Medications Medications (Trade) Dose Ordered Sig/Candy Start Time Stop Time Status Last Admin Dose Admin Famotidine (Pepcid Vial) 20 mg 1X ONCE 11/29/18 14:00 11/29/18 14:01 UNV Fentanyl Citrate (Fentanyl 2ml Vial) 50 mcg 1X ONCE 11/29/18 14:00 11/29/18 14:01 UNV Ondansetron HCl (Zofran) 8 mg 1X ONCE 11/29/18 14:00 11/29/18 14:01 UNV Sodium Chloride 1,000 ml @ 1,000 mls/hr 1X ONCE 11/29/18 14:00 11/29/18 14:59 UNV Allergies Allergies Allergies Coded Allergies Type Severity Reaction Last Updated Verified Pork/Porcine Containing Products Allergy Unknown 10/04/17 Yes latex Allergy Unknown 10/04/17 Yes Physical Exam Physical Exam Constitutional: Well developed, well nourished, moderate distress, appears acutely ill but nontoxic. [] HENT: Normocephalic, atraumatic, bilateral external ears normal, oropharynx moist, no oral exudates, nose normal. [] Eyes: PERRLA, EOMI, conjunctiva normal, no discharge. [] Neck: Normal range of motion, no tenderness, supple, no stridor. [] Cardiovascular:Heart rate regular rhythm, no murmur [] Lungs & Thorax: Bilateral breath sounds clear to auscultation [] Abdomen: Epigastric and right upper quadrant are tender to palp with positive Cota's sign[] Skin: Warm, dry, no erythema, no rash. [] Back: No tenderness, no CVA tenderness. [] Extremities: No tenderness, no cyanosis, no clubbing, ROM intact, no edema. [] Neurologic: Alert and oriented X 3, normal motor function, normal sensory function, no focal deficits noted. [] Psychologic: Anxious[] Current Patient Data Vital Signs Vital Signs Date Time Temp Pulse Resp B/P (MAP) Pulse Ox O2 Delivery O2 Flow Rate FiO2 11/29/18 13:35 97.7 80 18 99 Room Air EKG EKG [] Radiology/Procedures Radiology/Procedures [] Impressions: PROCEDURE: ABDOMEN LTD Exam: Right Upper Quadrant Ultrasound 11/29/2018 3:04 PM Indication: ruq pain nausea x's 3 days Technique: Multiple realtime grayscale sonographic images were obtained over the abdomen. Static images were submitted for interpretation. Comparisons: None Findings: Visualized pancreas is partially visualized. Visualized portions of the pancreas are unremarkable. Visualized portions of the IVC are unremarkable. portions of the pancreas are unremarkable. The IVC is patent. The liver is normal in size measuring 15.2 cm longitudinally.. There is a normal hepatic echotexture. No focal lesions are identified. The gallbladder is nondistended. There is no evidence for cholelithiasis. There is no wall thickening, or pericholecystic fluid. The common bile duct is within normal limits measuring 2 mm in diameter. The Right kidney is normal in appearance measuring approximately 9.8 cm in length. There is no evidence for mass, nephrolithiasis, or hydronephrosis. IMPRESSION: No acute sonographic abnormalities of the right upper quadrant Course & Med Decision Making Course & Med Decision Making Pertinent Labs and Imaging studies reviewed. (See chart for details) [ED course: Of evaluation was 23-year-old female was right upper quadrant discomfort nausea and vomiting. She was given IV fluids and Zofran during her stay in the department which did alleviate her symptoms. Right upper quadrant ultrasound was negative for acute cholecystitis. Patient felt much better and I feel is safe for discharge home.] Dragon Disclaimer Dragon Disclaimer This electronic medical record was generated, in whole or in part, using a voice recognition dictation system. Departure Departure: Impression: Primary Impression: Intractable nausea and vomiting Additional Impressions: Epigastric pain Right upper quadrant abdominal pain Disposition: HOME, SELF-CARE Condition: IMPROVED Referrals: PCP,UNKNOWN (PCP) Patient Instructions: Abdominal Pain, Nausea and Vomiting Additional Instructions: Clear liquids for the next 24 hours. Return to the emergency department with any new or concerning symptoms Scripts Ranitidine Hcl (ZANTAC) 300 Mg Tablet 300 MG PO QHS for reflux, #30 CAP 2 Refills Prov: KENNETH WILLARD DO 11/29/18 Problem Qualifiers Primary Impression: Intractable nausea and vomiting Vomiting type: unspecified Qualified Codes: R11.2 - Nausea with vomiting, unspecified KENNETH WILLARD DO Nov 29, 2018 14:00
[2018-11-29 14:17] LABS: BASO % 0 % (0-3); EOS % 0 % (0-3); HEMATOCRIT 45.4 % (36.0-47.0); HEMOGLOBIN 15.7 g/dL (12.0-15.5); LYMPH # 2.7 x10^3/uL (1.0-4.8); LYMPH % 22 % (24-48); MEAN CORPUSCULAR HEMOGLOBIN 30 pg (25-35); MEAN CORPUSCULAR HGB CONC 35 g/dL (31-37); MEAN CORPUSCULAR VOLUME 87 fL (79-100); MONO # 0.6 x10^3/uL (0.0-1.1); MONO % 5 % (0-9); NEUT % 72 % (31-73); PLATELET COUNT 318 x10^3/uL (140-400); RED CELL DISTRIBUTION WIDTH 12.9 % (11.5-14.5); WHITE BLOOD COUNT 12.4 x10^3/uL (4.0-11.0)
[2018-11-29] MEDS ORDERED: ONDANSETRON PF 4 MG/2 ML VIAL. IV ONE (14:20)
[2018-11-29 14:21] LABS: BILIRUBIN,URINE NEG (NEG); CLARITY,URINE HAZY; COLOR,URINE AMBER; GLUCOSE,URINE NEG (NEG)
[2018-11-29 14:22] LABS: BACTERIA,URINE 0 /HPF (0-FEW); HYALINE CASTS, URINE OCC /HPF; NITRITE,URINE NEG (NEG); RBC,URINE 0 /HPF (0-2); SQUAMOUS EPITHELIAL CELL,UR OCC /LPF; UROBILINOGEN,URINE 0.2 mg/dL (0.2 mg/dL); WBC,URINE 0 /HPF (0-4)
[2018-11-29 14:24] LABS: U PREG PATIENT NEGATIVE (NEG)
[2018-11-29 14:29] LABS: CALCIUM 9.3 mg/dL (8.5-10.1); CREATININE 0.9 mg/dL (0.6-1.0); GFR 77.6; POTASSIUM 3.5 mmol/L (3.5-5.1); TOTAL BILIRUBIN 0.6 mg/dL (0.2-1.0); TOTAL PROTEIN 7.9 g/dL (6.4-8.2)
[2018-11-29] MEDS ORDERED: FAMOTIDINE 20 MG/2 ML VIAL IVP ONE (14:30)
--- NOTE | 2018-11-29 15:35 | RAD ---
Exam: Right Upper Quadrant Ultrasound 11/29/2018 3:04 PM Indication: ruq pain nausea x's 3 days Technique: Multiple realtime grayscale sonographic images were obtained over the abdomen. Static images were submitted for interpretation. Comparisons: None Findings: Visualized pancreas is partially visualized. Visualized portions of the pancreas are unremarkable. Visualized portions of the IVC are unremarkable. portions of the pancreas are unremarkable. The IVC is patent. The liver is normal in size measuring 15.2 cm longitudinally.. There is a normal hepatic echotexture. No focal lesions are identified. The gallbladder is nondistended. There is no evidence for cholelithiasis. There is no wall thickening, or pericholecystic fluid. The common bile duct is within normal limits measuring 2 mm in diameter. The Right kidney is normal in appearance measuring approximately 9.8 cm in length. There is no evidence for mass, nephrolithiasis, or hydronephrosis. IMPRESSION: No acute sonographic abnormalities of the right upper quadrant Electronically signed by: Trent Mcclelland MD (11/29/2018 3:32 PM) [id number]
[2018-11-29] MEDS ORDERED: RANI300T3 PO (16:04)
[2018-11-29 16:06] VITALS: BP 132/65
== END 2018-11-29 16:11 | disposition home or self-care (01) ==
LOC: ER 13:27
DX: R10.11 Right upper quadrant pain (principal); R10.13 Epigastric pain; R11.2 Nausea with vomiting, unspecified; F17.210 Nicotine dependence, cigarettes, uncomplicated; Z98.890 Other specified postprocedural states; Z88.8 Allergy status to other drugs, medicaments and biological substances; Z91.040 Latex allergy status
CPT/HCPCS: 36415; 76705; 80053; 81001; 81025; 83690; 85025; 96374; 96375; 99284; J2405; J3010; J3490; J7030

== ENCOUNTER 2019-01-17 14:45 | Emergency (ER) | payer OTHER ==
[~2019-01-17] VITALS: Ht 160 cm; Wt 73.1 kg
[~2019-01-17 14:45] MED LIST changes: +RANI300T3 PO
[2019-01-17] MEDS ORDERED: IV NORMAL SALINE 1,000ML 1,000 ML IV SCH (14:58)
--- NOTE | 2019-01-17 15:05 | PHYS DOC ---
Past History Past Medical History: No Pertinent History Past Surgical History: , Other Smoking: Cigarettes, Less than 1pk/day Alcohol Use: Occasionally Drug Use: None Adult General Chief Complaint Chief Complaint: ABDOMINAL PAIN IN HPI HPI Patient is a 23-year-old female who presents with right lower quadrant to midline abdominal pain. Patient reports that her last menstrual. Was December 06. She was at [facility] today to be checked for , reports that her urine test was positive but they were unable to visualize any intrauterine and so they directed her to an emergency department. Patient notes that she's been feeling lightheaded for the past 2 weeks, had vaginal bleeding for several days to weeks ago. That vaginal bleeding stopped. Denies any vaginal discharge. She is uncertain as to what her blood type is. Her surgical history is significant for C-sections as well as complications of the MIRENA Ring. She denies any rashes or bruising.[] Review of Systems Review of Systems Constitutional: Denies fever or chills [] Eyes: Denies change in visual acuity, redness, or eye pain [] HENT: Denies nasal congestion or sore throat [] Respiratory: Denies cough or shortness of breath [] Cardiovascular: No additional information not addressed in HPI [] GI: See history of present illness[] : Denies dysuria or hematuria [] Musculoskeletal: Denies back pain or joint pain [] Integument: Denies rash or skin lesions [] Neurologic: Denies headache, focal weakness or sensory changes [] Endocrine: Denies polyuria or polydipsia [] All other systems were reviewed and found to be within normal limits, except as documented in this note. Allergies Allergies Allergies Coded Allergies Type Severity Reaction Last Updated Verified Pork/Porcine Containing Products Allergy Unknown 01/17/19 Yes latex Allergy Unknown 01/17/19 Yes Physical Exam Physical Exam Constitutional: Well developed, well nourished, no acute distress, non-toxic appearance. [] HENT: Normocephalic, atraumatic, bilateral external ears normal, oropharynx moist, no oral exudates, nose normal. [] Eyes: PERRLA, EOMI, conjunctiva normal, no discharge. [] Neck: Normal range of motion, no tenderness, supple, no stridor. [] Cardiovascular:Heart rate regular rhythm, no murmur [] Lungs & Thorax: Bilateral breath sounds clear to auscultation [] Abdomen: Bowel sounds normal, soft, RLQ the pelvis tenderness to palpation, no rebound, no guarding, no rigidity, no masses, no pulsatile masses. Health exam performed with tub operator: External genitalia, [place]'s gland, urethra , and Bartholin's glands were all normal, vaginal vault showed no blood in the vault, cervix had no bleeding, no cervical motion tenderness. [] Skin: Warm, dry, no erythema, no rash. [] Back: No tenderness, no CVA tenderness. [] Extremities: No tenderness, no cyanosis, no clubbing, ROM intact, no edema. [] Neurologic: Alert and oriented X 3, normal motor function, normal sensory function, no focal deficits noted. [] Psychologic: Affect normal, judgement normal, mood normal. [] EKG EKG [] Radiology/Procedures Radiology/Procedures HISTORY: Positive test Transabdominal and transvaginal scans were obtained. The uterus measures 9 x 6 x 4 cm. There is thickening of the central uterine echo complex measuring 1.6 cm in AP dimension. It is best demonstrated on the transvaginal scans. A normal gestational sac is not evident. There is blood flow within this tissue in the central uterine cavity. The ovaries are of normal size. A 1.9 cm cyst is present in the right ovary. No gestational sac or suspicious mass is seen in either adnexa. There is only trace amount of simple free fluid in the cul-de-sac. This amount of fluid can be on a physiologic basis. IMPRESSION: 1. Moderate endometrial thickening without current evidence of a gestational sac. Diagnostic considerations include a very early intrauterine , nonviable or retained products of conception. An occult ectopic cannot be excluded. Correlation with serial hCG titers and sonographic follow-up is suggested. 2. Small right ovarian cyst.[] Course & Med Decision Making Course & Med Decision Making Pertinent Labs and Imaging studies reviewed. (See chart for details) ED course: Patient arrived, was placed in bed, and tolerated exam well. She was transported to and from [facility], [place] with any complications. After the return of the laboratory and imaging studies, these were discussed with the patient who voiced understanding. All questions were answered. She was discharged in improved condition. Medical decision making: Even that the patient has been having symptoms for the past 2 weeks, do not see any evidence of this being an ectopic given that there is no f re-fluid in the pelvis. No evidence of a urinary tract infection. No evidence of needing Rh immunoglobulin since her blood type is O+. Given that we only have the snapshot in time of her serum quantitative test of 749, she will need close follow-up to ensure that it is doubling appropriately or to be followed as it goes to 0. Discussed this with the patient who voiced understanding.[] Dragon Disclaimer Dragon Disclaimer This electronic medical record was generated, in whole or in part, using a voice recognition dictation system. Departure Departure: Impression: Primary Impression: Threatened miscarriage Disposition: HOME, SELF-CARE Condition: IMPROVED Referrals: OTTONIEL ESCOBAR DO (PCP) Follow-up in 2 days Patient Instructions: Threatened Miscarriage Additional Instructions: Call your primary care physician today to be seen within the next 2 days. Your quantitative level was 749 today. In a normal this level should double every 2-3 days. This needs to be reevaluated by your primary care physician or PHYSICIAN OFFICE ASSISTANT. This low of the level of a quantitative test is 2 low to be able to see any evidence of a . Fortunately there is no evidence of an ectopic today. Return to the ER if worsening pain, vaginal bleeding, or any other concerns. Scripts Acetaminophen (TYLENOL) 325 Mg Tablet 1-2 TAB PO QID for PAIN, #60 TAB 0 Refills Prov: MIKE LUIS DO 01/17/19 MIKE LUIS DO Jan 17, 2019 15:05
[2019-01-17 15:27] LABS: BASO # 0.1 x10^3/uL (0.0-0.2); BASO % 1 % (0-3); EOS # 0.1 x10^3/uL (0.0-0.7); EOS % 1 % (0-3); HEMATOCRIT 43.8 % (36.0-47.0); HEMOGLOBIN 15.2 g/dL (12.0-15.5); LYMPH # 3.1 x10^3/uL (1.0-4.8); LYMPH % 30 % (24-48); MEAN CORPUSCULAR HEMOGLOBIN 31 pg (25-35); MEAN CORPUSCULAR HGB CONC 35 g/dL (31-37); MEAN CORPUSCULAR VOLUME 88 fL (79-100); MONO # 0.5 x10^3/uL (0.0-1.1); MONO % 5 % (0-9); NEUT # 6.3 x10^3uL (1.8-7.7); NEUT % 63 % (31-73); PLATELET COUNT 280 x10^3/uL (140-400); RED BLOOD COUNT 4.99 x10^6/uL (3.50-5.40); RED CELL DISTRIBUTION WIDTH 13.4 % (11.5-14.5)
[2019-01-17 15:45] LABS: ALBUMIN 3.5 g/dL (3.4-5.0); ALBUMIN/GLOBULIN RATIO 0.9 (1.0-1.7); CALCIUM 9.3 mg/dL (8.5-10.1); CREATININE 0.8 mg/dL (0.6-1.0); GFR 88.9; POTASSIUM 3.3 mmol/L (3.5-5.1); TOTAL BILIRUBIN 0.3 mg/dL (0.2-1.0); TOTAL PROTEIN 7.4 g/dL (6.4-8.2)
[2019-01-17 16:24] LABS: CLARITY,URINE CLEAR; COLOR,URINE STRAW
[2019-01-17 16:25] LABS: BACTERIA,URINE 0 /HPF (0-FEW); BILIRUBIN,URINE NEG (NEG); GLUCOSE,URINE NEG (NEG); NITRITE,URINE NEG (NEG); RBC,URINE 0 /HPF (0-2); SQUAMOUS EPITHELIAL CELL,UR OCC /LPF; UROBILINOGEN,URINE 0.2 mg/dL (0.2 mg/dL); WBC,URINE 0 /HPF (0-4)
--- NOTE | 2019-01-17 16:45 | RAD ---
Pelvic ultrasound, 01/17/2019: HISTORY: Positive test Transabdominal and transvaginal scans were obtained. The uterus measures 9 x 6 x 4 cm. There is thickening of the central uterine echo complex measuring 1.6 cm in AP dimension. It is best demonstrated on the transvaginal scans. A normal gestational sac is not evident. There is blood flow within this tissue in the central uterine cavity. The ovaries are of normal size. A 1.9 cm cyst is present in the right ovary. No gestational sac or suspicious mass is seen in either adnexa. There is only trace amount of simple free fluid in the cul-de-sac. This amount of fluid can be on a physiologic basis. IMPRESSION: 1. Moderate endometrial thickening without current evidence of a gestational sac. Diagnostic considerations include a very early intrauterine , nonviable or retained products of conception. An occult ectopic cannot be excluded. Correlation with serial hCG titers and sonographic follow-up is suggested. 2. Small right ovarian cyst. Electronically signed by: Pio Gutierrez MD (01/17/2019 4:43 PM) [facility]
[2019-01-17] MEDS ORDERED: ACET325T9 PO (17:18)
[2019-01-17 17:49] VITALS: BP 111/72
== END 2019-01-17 17:52 | disposition home or self-care (01) ==
LOC: ER 14:45
DX: O20.0 Threatened abortion (principal); O34.81 Maternal care for other abnormalities of pelvic organs, first trimester; N83.201 Unspecified ovarian cyst, right side; R42 Dizziness and giddiness; O99.331 Smoking (tobacco) complicating pregnancy, first trimester; Z3A.01 Less than 8 weeks gestation of pregnancy; Z88.8 Allergy status to other drugs, medicaments and biological substances; Z91.040 Latex allergy status
CPT/HCPCS: 36415; 76801; 76817; 80053; 81001; 83690; 84702; 85025; 86900; 86901; 87491; 87591; 96360; 96361; 99285; Q0111; J7030

== ENCOUNTER 2019-02-17 23:54 | Emergency (ER) | payer OTHER ==
[~2019-02-17] VITALS: Ht 160 cm; Wt 71.7 kg
[~2019-02-17 23:54] MED LIST changes: +ACET325T9 PO
[2019-02-18] MEDS ORDERED: IV NORMAL SALINE 1,000ML 1,000 ML IV SCH (00:07)
[2019-02-18 00:40] LABS: BASO # 0.1 x10^3/uL (0.0-0.2); BASO % 1 % (0-3); EOS # 0.1 x10^3/uL (0.0-0.7); EOS % 1 % (0-3); HEMATOCRIT 46.5 % (36.0-47.0); HEMOGLOBIN 15.9 g/dL (12.0-15.5); LYMPH # 2.8 x10^3/uL (1.0-4.8); LYMPH % 23 % (24-48); MEAN CORPUSCULAR HEMOGLOBIN 31 pg (25-35); MEAN CORPUSCULAR HGB CONC 34 g/dL (31-37); MEAN CORPUSCULAR VOLUME 90 fL (79-100); MONO # 0.5 x10^3/uL (0.0-1.1); MONO % 5 % (0-9); NEUT # 8.7 x10^3uL (1.8-7.7); NEUT % 71 % (31-73); PLATELET COUNT 329 x10^3/uL (140-400); RED BLOOD COUNT 5.14 x10^6/uL (3.50-5.40); RED CELL DISTRIBUTION WIDTH 13.5 % (11.5-14.5); WHITE BLOOD COUNT 12.1 x10^3/uL (4.0-11.0)
[2019-02-18 00:47] LABS: BACTERIA,URINE 0 /HPF (0-FEW); BILIRUBIN,URINE NEG (NEG); CLARITY,URINE CLEAR; COLOR,URINE YELLOW; GLUCOSE,URINE NEG (NEG); NITRITE,URINE NEG (NEG); RBC,URINE OCC /HPF (0-2); SQUAMOUS EPITHELIAL CELL,UR MOD /LPF; UROBILINOGEN,URINE 0.2 mg/dL (0.2 mg/dL); WBC,URINE OCC /HPF (0-4)
[2019-02-18 00:51] LABS: CALCIUM 9.4 mg/dL (8.5-10.1); CREATININE 0.8 mg/dL (0.6-1.0); GFR 88.9; POTASSIUM 3.5 mmol/L (3.5-5.1); TOTAL BILIRUBIN 0.4 mg/dL (0.2-1.0); TOTAL PROTEIN 8.1 g/dL (6.4-8.2)
[2019-02-18 00:51] LABS: BARBITURATES NEG (NEG); BENZODIAZEPINES NEG (NEG); CANNABINOIDS POS (NEG); COCAINE NEG (NEG); METHADONE NEG (NEG); OPIATES NEG (NEG); PHENCYCLIDINE NEG (NEG)
[2019-02-18 00:53] LABS: AMPHETAMINE/METHAMPHETAMINE NEG (NEG)
--- NOTE | 2019-02-18 01:46 | RAD ---
Obstetrical ultrasound less than 14 weeks HISTORY: Low abdominal pain, pelvic pain, postabortion Transabdominal ultrasound was performed. Uterus measures 11 x 4.1 x 3.8 cm. There is no intrauterine gestation identified. Endometrium was 8 mm in thickness. There is no uterine mass. Right ovary measured 3 x 2.3 x 2.2 cm. There are small follicles in the right ovary the largest measures 1.6 cm. There is flow in the right ovary with color imaging. Left ovary measured 2.9 x 1.6 x 1.5 cm and was normal in appearance. There is flow in the left ovary by Doppler. A single transvaginal imaging was taken showing the lower uterine segment and cervix. There is mild thickening of the endometrium with possible hemorrhage measuring 1 cm in thickness in the lower uterine segment. There was no mass at the cervix. IMPRESSION: 1. Mild prominence of the endometrium. 2. No intrauterine gestation identified. 3. No uterine mass noted. 4. Normal ovaries. 5. No free fluid in the pelvis. Electronically signed by: Ottoniel Amado MD (02/18/2019 1:43 AM) [facility]
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
[2019-02-18 01:55] VITALS: BP 109/58
--- NOTE | 2019-03-08 12:51 | EKG ---
[address] [address] Test Date: 2019-02-18 Test Time: 00:02:43 Pat Name: BETHEL KAUFFMAN Department: Room: Gender: F Clinical Research Analyst: : 1995 Requested By: JAROD ARCEO Order Number: [id number] Reading MD: Ferdinand Pardo Measurements Intervals [place] Rate: 105 P: 0 PA: 138 QRS: 64 QRSD: 74 T: 27 QT: 324 QTc: 432 Interpretive Statements SINUS TACHYCARDIA Electronically Signed On 03-08-2019 12:51:17 CDT by Ferdinand Pardo
== END 2019-02-18 01:55 | disposition home or self-care (01) ==
LOC: ER 23:54
DX: R55 Syncope and collapse (principal); R10.2 Pelvic and perineal pain; Z33.1 Pregnant state, incidental; F17.210 Nicotine dependence, cigarettes, uncomplicated; Z91.040 Latex allergy status; Z88.8 Allergy status to other drugs, medicaments and biological substances
CPT/HCPCS: 36415; 76801; 80053; 80307; 81001; 81025; 83690; 85025; 93005; 96360; 96361; 99285-25; J7030